=== PATIENT | female | born 1945 | race Caucasian/White ===

== ENCOUNTER 2017-05-20 06:56 | Day surgery (SDC) | payer MEDICARE, OTHER ==
[~2017-05-20 06:56] MED LIST: ACETAMINOPHEN WITH CODEINE 1 EACH TABLET PO PRN; KETOROLAC TROMETHAMINE 30 MG/ML VIAL IV PRN; NORMAL SALINE 1,000 ML IV PRN; ONDANSETRON HCL/PF 2 MG/ML VIAL IV PRN; oxyCODONE HCL/ACETAMINOPHEN 1 TAB TABLET PO PRN
[2017-05-20] MEDS ORDERED: NORMAL SALINE 1,000 ML IV ONE (07:40)
[2017-05-20] MEDS ORDERED: NORMAL SALINE 1,000 ML IV PRN (08:06)
[2017-05-20] MEDS ORDERED: ceFAZolin SODIUM 1 GM VIAL IV PRN (08:07)
[2017-05-20] MEDS ORDERED: RINGER'S SOLUTION,LACTATED 1,000 ML IV ONE (09:55)
[2017-05-20] MEDS ORDERED: OPIUM/BELLADONNA ALKALOIDS 1 SUPP SUPP RC PRN (10:13)
[2017-05-20 10:56] VITALS: BP 153/56
== END 2017-05-20 06:57 | disposition home or self-care (01) ==
LOC: AMB 06:56
PROVIDERS: ATTEND Urology
PROC: 0T7B8ZZ Dilation of Bladder, Via Natural or Artificial Opening Endoscopic (ICD-10-PCS; principal; 2017-05-20)
DX: N30.10 Interstitial cystitis (chronic) without hematuria; E66.9 Obesity, unspecified; Z68.34 Body mass index [BMI] 34.0-34.9, adult